=== PATIENT | female | born 1990 | race Caucasian/White ===

== ENCOUNTER 2022-05-10 08:17 | Outpatient (CLI) | payer BC, SELFPAY ==
[2022-05-10 09:33] LABS: HCG Quant, Pregnancy 2692 mIU/mL (1-3)
== END 2022-05-10 08:18 | disposition home or self-care (01) ==
LOC: LBO 08:17
PROVIDERS: Visit Provider Advanced Practice Midwife
DX: O20.9 Hemorrhage in early pregnancy, unspecified (principal)
CPT/HCPCS: 36415; 84702

== ENCOUNTER 2022-05-12 01:36 | Outpatient (CLI) | payer BC, SELFPAY ==
[2022-05-12 08:06] LABS: HCG Quant, Pregnancy 1540 mIU/mL (1-3)
== END 2022-05-12 01:37 | disposition home or self-care (01) ==
LOC: LBO 01:36
PROVIDERS: Visit Provider Advanced Practice Midwife
DX: O20.9 Hemorrhage in early pregnancy, unspecified (principal)
CPT/HCPCS: 36415; 84702

== ENCOUNTER 2022-06-05 03:27 | Outpatient (CLI) | payer BC, SELFPAY ==
[2022-06-05 11:21] LABS: HCG Quant, Pregnancy 6 mIU/mL (1-3)
== END 2022-06-05 03:28 | disposition home or self-care (01) ==
PROVIDERS: Visit Provider Advanced Practice Midwife
DX: O03.9 Complete or unspecified spontaneous abortion without complication (principal)
CPT/HCPCS: 36415; 84702

== ENCOUNTER 2023-02-27 02:39 | Outpatient (CLI) | payer BC, SELFPAY ==
[2023-02-27 09:58] LABS: HCT 34.9 % (36.0-46.0); HGB 11.7 g/dL (11.2-15.7); MCH 31.7 pg (27.0-33.0); MCHC 33.5 % (32.0-36.0); MCV 95 fL (80-95); MPV 10.2 fL (8.0-11.0); Platelet Count 180 10^3/uL (130-400); RBC 3.69 10^6/uL (3.93-5.22); RDW-SD 44.4 fL; WBC 8.35 10^3/uL (4.4-10.8)
[2023-02-27 10:08] LABS: Glucose,1 Hr (Glucola) 117 mg/dL (80-140)
== END 2023-02-27 02:40 | disposition home or self-care (01) ==
PROVIDERS: Visit Provider Obstetrics & Gynecology
DX: Z34.93 Encounter for supervision of normal pregnancy, unspecified, third trimester (principal); Z3A.00 Weeks of gestation of pregnancy not specified
CPT/HCPCS: 36415; 82950; 85027